=== PATIENT | male | born 1985 | race African-American/Black ===

== ENCOUNTER 2016-06-15 08:44 | Emergency (ER) | payer SELFPAY ==
[~2016-06-15] VITALS: Ht 190.5 cm; Wt 80.5 kg
[~2016-06-15 08:44] MED LIST: IBUP-1050 PO; PROC1TAB5 PO
[2016-06-15 08:48] VITALS: TEMP 36.6; Ht 190.5 cm; Wt 80.5 kg
[2016-06-15] MEDS ORDERED: METOCLOPRAMIDE HCL INJ 5 MG/ML 2 ML VIAL IV STA (09:12)
[2016-06-15] MEDS ORDERED: KETOROLAC TROMETHAMINE 30 MG/ML VIAL IV STA (09:12)
[2016-06-15] MEDS ORDERED: SODIUM CHLORIDE 0.9% 1000ML 1,000 ML IV STA (09:12)
[2016-06-15] MEDS ORDERED: HYDROmorphone INJ 1 MG/ML SYR IV STA (09:12)
[2016-06-15 09:20] LABS: BASO % 0.1 %; BASO ABS # 0.01 K/uL (0-0.2); COMPLETE YES; EOS % 2.2 %; HEMATOCRIT 42.9 % (42-52); IG% 0.2 %; LYMPH % 11.4 %; LYMPH ABS # 0.92 K/uL (1.2-3.4); MEAN CORPUSCULAR HEMOGLOBIN 30.8 pg (25-34); MEAN CORPUSCULAR HGB CONC 37.5 g/dl (32-36); MEAN PLATELET VOLUME 10.1 fL (7.4-10.4); MONO % 3.9 %; NEUT % 82.2 %; PLATELET COUNT 202 K/uL (130-400); RED BLOOD COUNT 5.23 M/uL (4.7-6.1); WHITE BLOOD COUNT 8.04 K/uL (4.8-10.8)
[2016-06-15 09:28] LABS: BUN/CREATININE RATIO 12.8 (10-20); CALCIUM 9.4 mg/dl (8.5-10.1); POTASSIUM 4.1 mmol/L (3.5-5.1)
--- NOTE | 2016-06-15 11:59 | DIAGNOSTIC IMAGING REPORT ---
CT ABD/PELVIS ORAL CONT ONLY CLINICAL HISTORY: Abdominal pain, vomiting and diarrhea. TECHNIQUE: Axial images of the abdomen and pelvis were obtained without IV contrast. Oral contrast was administered. COMPARISON STUDY: CT of the abdomen and pelvis September 29, 2013. FINDINGS: Lung bases are clear. No renal, ureteral or bladder calculi are present. There is no hydronephrosis or hydroureter. Evaluation of the remainder of the abdomen and pelvis is suboptimal on this unenhanced exam. Unenhanced images of the liver, spleen, adrenal glands and pancreas are normal. There is no evidence of a bowel obstruction. The appendix is normal. There is no free fluid or lymphadenopathy. Mild wall thickening of the left colon is likely due to underdistention. IMPRESSION: 1. No acute process within the abdomen or pelvis on unenhanced exam. Normal appendix. 2. Apparent mild wall thickening of the left colon is likely due to underdistention. A mild nonspecific colitis could appear similar but is considered less likely. Electronically signed by: Amaury Carrillo M.D. 06/15/2016 11:57 AM Dictated Date/Time: 06/15/2016 11:52 AM
[2016-06-15] MEDS ORDERED: AMOXICILLIN 250 MG CAP PO STA (12:16)
[2016-06-15] MEDS ORDERED: LANSOPRAZOLE SOLUTAB 30 MG PO STA (12:16)
[2016-06-15] MEDS ORDERED: AMOX500C3 PO (12:25)
[2016-06-15] MEDS ORDERED: OXYC-57 PO (12:25)
[2016-06-15] MEDS ORDERED: ONDA4TAB10 SL (12:25)
[2016-06-15] MEDS ORDERED: LANS30CA41 PO (12:25)
[2016-06-15] MEDS ORDERED: CLAR500T3 PO (12:25)
[2016-06-15] MEDS ORDERED: CLARITHROMYCIN 500 MG TAB PO ONE (12:30)
[2016-06-15 12:52] VITALS: BP 125/64; PULSE 76; O2SAT 97
--- NOTE | 2016-06-15 16:17 | EMERGENCY ROOM VISIT NOTE ---
History Report prepared by Ania: Scarlet Tate Under the Supervision of: Dr. Andrez Somers M.D. First contact with patient: 08:58 Chief Complaint: ABDOMINAL PAIN Stated Complaint: BELLY PAIN, VOMITING, DIARRHEA Nursing Triage Summary: n/v/c abdominal pain since 0100 History of Present Illness The patient is a 31 year old male who presents to the Emergency Room with complaints of progressively worsening pain around his periumbilical region over the past 8 hours. Currently, he rates his discomfort as a 10/10, and he is unable to find a comfortable position secondary to his pain. Since the time of onset, the patient has felt nauseous and has vomited several times. He also notes one movement of diarrhea this morning, but he denies noticing any blood throughout his emesis or stool, and he denies noticing any black, tarry discoloration. The patient has a history of H. pylori and states that his symptoms today feel similar to his past episode. He did not follow up with GI at that time. He has not yet taken any medications for his symptoms today. Patient denies recent fevers, chills, chest pain, cough, shortness of breath, urinary symptoms or swelling to his extremities. Source of History: patient Onset: x8 hours Position: abdomen (periumbilical) Symptom Intensity: 10/10 Timing: other (x 8 hours) Associated Symptoms: + diarrhea, + nausea, + vomiting, No SOB, No chest pain , No chills, No cough, No fevers, No hematochezia, No melena, No urinary symptoms Review of Systems See HPI for pertinent positives & negatives. A total of 10 systems reviewed and were otherwise negative. Past Medical & Surgical Medical Problems: (1) Pharyngitis (2) Positive H. pylori test (3) Positive H. pylori test (4) Scabies Family History Diabetes mellitus Hypertension Kidney stones Social History Smoking Status: Former Smoker Alcohol Use: heavy Drug Use: marijuana Marital Status: single Housing Status: lives with family Occupation Status: employed Current/Historical Medications Scheduled Amoxicillin (Amoxil), 500 MG PO TID Clarithromycin (Biaxin), 1 TAB PO BID Lansoprazole (Prevacid), 30 MG PO DAILY Ondasetron Odt (Zofran Odt), 4 MG SL Q6H Scheduled PRN Oxycodone/Acetaminophen 5MG/325MG (Percocet 5MG/325MG), 1-2 TAB PO Q4H PRN for Pain Allergies Coded Allergies: Iodine (Verified Allergy, Unknown, SEAFOOD ALLERGY = HIVES, 06/15/16) Uncoded Allergies: BEE STINGS (Allergy, Unknown, ., 02/10/14) Physical Exam Vital Signs Date Time Temp Pulse Resp B/P Pulse Ox O2 Delivery O2 Flow Rate FiO2 06/15/16 12:52 76 18 125/64 97 06/15/16 10:12 78 18 123/73 99 Room Air 06/15/16 09:31 67 06/15/16 08:48 36.6 88 20 120/73 95 Room Air Physical Exam GENERAL: Patient is a writhing around the bed in pain. Appears uncomfortable. HEAD: Normocephalic atraumatic EYES: Ocular movements intact pupils equal and react to light OROPHARYNX mucous membranes are moist no exudates present no erythema or edema present NECK: Supple no nuchal rigidity CHEST: Good equal expansion LUNGS: Clear and equal to auscultation CARDIAC: Normal S1 and S2 ABDOMEN: Diffuse pain throughout. BACK: No CVA tenderness EXTREMITIES: No pain upon palpation normal muscle strength in all groups no clubbing cyanosis or edema NEURO: Patient is following commands is answering questions appropriately. Alert and oriented x3 Cranial Nerves 2-12 grossly intact Medical Decision & Procedures ER Provider Diagnostic Interpretation: CT results as stated below per my review and radiologist interpretation: CT ABD/PELVIS ORAL CONT ONLY CLINICAL HISTORY: Abdominal pain, vomiting and diarrhea. TECHNIQUE: Axial images of the abdomen and pelvis were obtained without IV contrast. Oral contrast was administered. COMPARISON STUDY: CT of the abdomen and pelvis September 29, 2013. FINDINGS: Lung bases are clear. No renal, ureteral or bladder calculi are present. There is no hydronephrosis or hydroureter. Evaluation of the remainder of the abdomen and pelvis is suboptimal on this unenhanced exam. Unenhanced images of the liver, spleen, adrenal glands and pancreas are normal. There is no evidence of a bowel obstruction. The appendix is normal. There is no free fluid or lymphadenopathy. Mild wall thickening of the left colon is likely due to underdistention. IMPRESSION: 1. No acute process within the abdomen or pelvis on unenhanced exam. Normal appendix. 2. Apparent mild wall thickening of the left colon is likely due to underdistention. A mild nonspecific colitis could appear similar but is considered less likely. Electronically signed by: Amaury Carrillo M.D. 06/15/2016 11:57 AM Dictated Date/Time: 06/15/2016 11:52 AM Laboratory Results 06/15/16 09:02 Red Blood Count 5.23, Mean Corpuscular Volume 82.0, Mean Corpuscular Hemoglobin 30.8, Mean Corpuscular Hemoglobin Concent 37.5, Mean Platelet Volume 10.1, Neutrophils (%) (Auto) 82.2, Lymphocytes (%) (Auto) 11.4, Monocytes (%) (Auto) 3.9, Eosinophils (%) (Auto) 2.2, Basophils (%) (Auto) 0.1, Neutrophils # (Auto) 6.60, Lymphocytes # (Auto) 0.92, Monocytes # (Auto) 0.31, Eosinophils # (Auto) 0.18, Basophils # (Auto) 0.01 06/15/16 09:02 Test 06/15/16 09:02 White Blood Count 8.04 K/uL (4.8-10.8) Red Blood Count 5.23 M/uL (4.7-6.1) Hemoglobin 16.1 g/dL (14.0-18.0) Hematocrit 42.9 % (42-52) Mean Corpuscular Volume 82.0 fL (80-100) Mean Corpuscular Hemoglobin 30.8 pg (25-34) Mean Corpuscular Hemoglobin Concent 37.5 g/dl (32-36) Platelet Count 202 K/uL (130-400) Mean Platelet Volume 10.1 fL (7.4-10.4) Neutrophils (%) (Auto) 82.2 % Lymphocytes (%) (Auto) 11.4 % Monocytes (%) (Auto) 3.9 % Eosinophils (%) (Auto) 2.2 % Basophils (%) (Auto) 0.1 % Neutrophils # (Auto) 6.60 K/uL (1.4-6.5) Lymphocytes # (Auto) 0.92 K/uL (1.2-3.4) Monocytes # (Auto) 0.31 K/uL (0.11-0.59) Eosinophils # (Auto) 0.18 K/uL (0-0.5) Basophils # (Auto) 0.01 K/uL (0-0.2) RDW Standard Deviation 43.6 fL (36.4-46.3) RDW Coefficient of Variation 14.3 % (11.5-14.5) Immature Granulocyte % (Auto) 0.2 % Immature Granulocyte # (Auto) 0.02 K/uL (0.00-0.02) Anion Gap 10.0 mmol/L (3-11) Est Creatinine Clear Calc Drug Dose 119.6 ml/min Estimated GFR () 114.1 Estimated GFR (Non- 98.5 BUN/Creatinine Ratio 12.8 (10-20) Calcium Level 9.4 mg/dl (8.5-10.1) Total Bilirubin 1.9 mg/dl (0.2-1) Direct Bilirubin 0.4 mg/dl (0-0.2) Aspartate Amino Transf (AST/SGOT) 20 U/L (15-37) Alanine Aminotransferase (ALT/SGPT) 27 U/L (12-78) Alkaline Phosphatase 44 U/L (45-117) Total Protein 7.9 gm/dl (6.4-8.2) Albumin 4.5 gm/dl (3.4-5.0) Lipase 125 U/L (73-393) Labs reviewed by ED physician. Medications Administered Medications (Trade) Dose Ordered Sig/Анна Route Start Time Stop Time Status Last Admin Dose Admin Sodium Chloride (Nss 1000ml) 1,000 ml @ 999 mls/hr Q1H1M STAT IV 06/15/16 09:12 06/15/16 10:12 DC 06/15/16 09:22 999 MLS/HR Ketorolac Tromethamine (Toradol Inj) 30 mg NOW STAT IV 06/15/16 09:12 06/15/16 09:14 DC 06/15/16 09:21 30 MG Metoclopramide HCl (Reglan Inj) 10 mg NOW STAT IV 06/15/16 09:12 06/15/16 09:14 DC 06/15/16 09:21 10 MG Hydromorphone HCl (Dilaudid Inj) 1 mg NOW STAT IV 06/15/16 09:12 06/15/16 09:14 DC 06/15/16 09:21 1 MG Amoxicillin (Amoxil Cap) 1,000 mg NOW STAT PO 06/15/16 12:16 06/15/16 12:18 DC 06/15/16 12:46 1,000 MG Clarithromycin (Biaxin Tab) 500 mg NOW ONCE PO 06/15/16 12:30 06/15/16 12:31 DC 06/15/16 12:45 500 MG Lansoprazole (Prevacid Solutab) 30 mg NOW STAT PO 06/15/16 12:16 06/15/16 12:18 DC 06/15/16 12:46 30 MG ED Course 0858: Past medical records reviewed. The patient was evaluated in room A9. A complete history and physical examination was performed. 0912: Dilaudid 1 mg IV, Reglan 10 mg IV, Toradol 30 mg IV and NSS bolus IV were ordered. 0950: Upon reevaluation, the patient was doing well and was resting more comfortably after receiving the pain medication. He will go to CT for further imaging studies. 1200: I reevaluated the patient at this time and updated him on the results of his radiology reports. His remaining lab tests are still pending. 1216: Upon reevaluation, the patient was doing well. I updated him on the remainder of his workup. Amoxicillin 1,000 mg PO was ordered. 1230: Patient was requesting additional antibiotics similar to when he had H. pylori as he feels that his symptoms are similar to that time. Biaxin tab 500 mg PO was ordered. Additional discharge instructions were also discussed. He verbalized his understanding and agreement with the treatment plan, and he is now ready for disposition. Medical Decision Differential diagnosis: Etiologies such as appendicitis, diverticulitis, PUD, biliary pathology, UTI, pancreatitis, obstruction, mesenteric ischemia, aortic pathology, infections, inflammatory bowel disease, renal colic, as well as others were entertained. This is a 31-year-old male who presents emergency department complaining of diffuse abdominal pain. Serial abdominal examinations were performed of the patient emergency department and at no time did the patient exhibited a surgical abdomen. In addition the patient has a normal CBC and does not have an elevation in his white blood count. He also has a normal renal profile normal liver profile normal lipase. The patient does have a history of positive H. pylori test and he states that he feels the pain is similar to when he had this. Based on this finding along with his complaints and using shared medical decision making we decided to treat the patient for H. pylori infection by started him on amoxicillin, clarithromycin as well as Prevacid. I believe the patient is well enough to be discharged home. He was given pain medication for home as well as Percocet. His CAT scan does not show any evidence of acute process. I stressed the need for follow-up with gastroenterology and also stressed a clear liquid diet for the next 48 hours. Patient was in agreement with the treatment plan. Impression Primary Impression: Epigastric abdominal pain Scribe Attestation The scribe's documentation has been prepared under my direction and personally reviewed by me in its entirety. I confirm that the note above accurately reflects all work, treatment, procedures, and medical decision making performed by me. Departure Information Dispostion Home / Self-Care Prescriptions Ondasetron Odt (ZOFRAN ODT) 4 Mg Tab 4 MG SL Q6H for Nausea, #6 TAB Prov: Andrez Somers MD 06/15/16 Oxycodone/Acetaminophen 5MG/325MG (PERCOCET 5MG/325MG) Tab 1-2 TAB PO Q4H Y for Pain, #14 TAB Prov: Andrez Somers MD 06/15/16 Lansoprazole (PREVACID) 30 Mg Cap 30 MG PO DAILY for 10 Days, #10 CAP Prov: Andrez Somers MD 06/15/16 Clarithromycin (BIAXIN) 500 Mg Tab 1 TAB PO BID for 10 Days, #20 TAB Prov: Andrez Somers MD 06/15/16 Amoxicillin (AMOXIL) 500 Mg Cap 500 MG PO TID, #30 CAP Prov: Andrez Somers MD 06/15/16 Referrals No Doctor, Assigned (PCP) Forms Call Back Authorization, HOME CARE DOCUMENTATION FORM, IMPORTANT VISIT INFORMATION Patient Instructions My [facility] Additional Instructions Follow up with DR Engel's office Clear liquid diet next 48 hours You received narcotic or benzodiazepene medication while in the emergency room today. Do not drive, operate heavy machinery, or drink alcohol under the influence of this medication. Take Percocet for breakthrough pain Radiographs and CTs will be reread by a radiologist in the morning. Culture results are usually available in approx 48 hours You have been examined and treated today on an emergency basis only. This is not a substitute for, or an effort to provide, complete comprehensive medical care. It is impossible to recognize and treat all injuries or illnesses in a single emergency department visit. It is therefore important that you follow up closely with Dr Engel. Call as soon as possible for an appointment. Thank you for your time and consideration. I look forward to speaking with you again soon. Please don't hesitate to call us if you have any questions.
== END 2016-06-15 12:52 | disposition home or self-care (01) ==
LOC: C.EDB 08:46 → C.EDA 12:52
DX: R10.13 Epigastric pain (principal); R19.7 Diarrhea, unspecified; A04.8 Other specified bacterial intestinal infections; Z86.19 Personal history of other infectious and parasitic diseases; Z83.3 Family history of diabetes mellitus; Z84.1 Family history of disorders of kidney and ureter; Z82.49 Family history of ischemic heart disease and other diseases of the circulatory system; Z87.891 Personal history of nicotine dependence

== ENCOUNTER 2017-04-29 08:20 | Emergency (ER) | payer OTHER ==
[~2017-04-29] VITALS: Ht 190.5 cm; Wt 86.2 kg
[2017-04-29 08:21] VITALS: TEMP 37.2; Ht 190.5 cm; Wt 86.2 kg
[2017-04-29] MEDS ORDERED: IBUPROFEN 600 MG TAB PO STA (08:55)
--- NOTE | 2017-04-29 09:25 | EMERGENCY ROOM VISIT NOTE ---
History Report prepared by Ania: Mervat Brewer Under the Supervision of: Dr. Lobito Gay M.D. First contact with patient: 08:48 Chief Complaint: FLU LIKE SX Stated Complaint: SPINAL CORD, FLU SYMPTOMS History of Present Illness The patient is a 31 year old male who presents to the Emergency Room with complaints of a persistent lower back pain that began 2 to 3 days ago. The patient currently rates his discomfort as a 10/10 in severity. He notes that he has been experiencing pressure on his lower back, noting is has progressively radiated throughout his entire back. He states that he has had a sore throat, cough and chills for 1 week. The patient states that he has taken NyQuil, Mucinex, and Advil without relief of his symptoms. He notes that his pain worsens with movement. The patient states that his children have been sick recently. He denies ever having pain like this in the past. Source of History: patient Onset: 2-3 days ago Position: back (lower) Symptom Intensity: 10/10 Quality: pressure Timing: other (persistent ) Modifying Factors (Worsening): movement Associated Symptoms: + chills, + sorethroat, + cough Review of Systems See HPI for pertinent positives & negatives. A total of 10 systems reviewed and were otherwise negative. Past Medical & Surgical Medical Problems: (1) Pharyngitis (2) Positive H. pylori test (3) Positive H. pylori test (4) Scabies Family History Diabetes mellitus Hypertension Kidney stones Social History Smoking Status: Current Every Day Smoker Alcohol Use: heavy Drug Use: marijuana Marital Status: single Housing Status: lives with family Occupation Status: employed Current/Historical Medications Scheduled Penicillin V Potassium (Veetids), 500 MG PO QID Scheduled PRN Ibuprofen (Motrin), 600 MG PO Q6H PRN for Pain Allergies Coded Allergies: BEE STING (Unverified Allergy, Intermediate, ., 04/29/17) Iodine (Verified Allergy, Unknown, SEAFOOD ALLERGY = HIVES, 04/29/17) Uncoded Allergies: BEE STINGS (Allergy, Unknown, ., 02/10/14) Physical Exam Vital Signs Date Time Temp Pulse Resp B/P (MAP) Pulse Ox O2 Delivery O2 Flow Rate FiO2 04/29/17 10:59 86 18 137/77 98 04/29/17 10:07 76 19 131/69 97 04/29/17 08:21 37.2 97 17 117/56 95 Room Air Physical Exam GENERAL: Patient awake, alert, oriented x 3. Patient follows commands. Patient does not appear toxic. Patient is adequately hydrated and well- nourished. Patient is in moderate to severe distress. SKIN: No erythema, pallor, cyanosis or rash HEENT: Normal head, pupils equal, reactive to light and accommodation. Ears normal. Some swelling in the posterior oropharynx and erythema, no pus. Neck: Without adenopathy, no neck vein distention. Negative Kernig's Brudzinski sign. LUNGS: Clear to auscultation. No wheezes, no rales, no rhonchi. HEART: No murmurs. No gallops. No rubs ABDOMEN: No masses, no rebound, no hepatomegaly or splenomegaly. BACK: Patient has some vague tenderness on lumbar, but no erythema or signs of infection. EXTREMITIES: No signs of trauma. No pedal or pretibial edema. No calf or thigh tenderness. NEUROLOGIC: Cranial nerves II-XII within normal limits. No gross motor sensory function deficits. Medical Decision & Procedures ER Provider Diagnostic Interpretation: Radiology results as stated below per my review and radiologist interpretation: CHEST 2 VIEWS ROUTINE HISTORY: 31 years-old Male acute fever with body aches COMPARISON: Acute abdominal series radiographs 09/29/2013 TECHNIQUE: PA and lateral views of the chest FINDINGS: Focal subsegmental alveolar opacities of the right upper lobe, likely anterior segment are present. Lung carney are otherwise clear without pneumothorax or pleural effusion. Minimal alveolar opacities of the left lung identified. Cardiomediastinal and hilar silhouettes are within normal limits. The bones of the chest are grossly intact. IMPRESSION: Subsegmental alveolar opacities of the right upper lobe suggest pneumonia. The above report was generated using voice recognition software. It may contain grammatical, syntax or spelling errors. Electronically signed by: Emiliano Roman M.D. 04/29/2017 9:37 AM Laboratory Results 04/29/17 09:05 Red Blood Count 4.40, Mean Corpuscular Volume 84.1, Mean Corpuscular Hemoglobin 31.4, Mean Corpuscular Hemoglobin Concent 37.3, Mean Platelet Volume 9.9, Neutrophils (%) (Auto) 83.4, Lymphocytes (%) (Auto) 9.4, Monocytes (%) (Auto) 6.0, Eosinophils (%) (Auto) 0.6, Basophils (%) (Auto) 0.1, Neutrophils # (Auto) 20.45, Lymphocytes # (Auto) 2.29, Monocytes # (Auto) 1.46, Eosinophils # (Auto) 0.14, Basophils # (Auto) 0.03 04/29/17 09:05 Test 04/29/17 09:05 04/29/17 10:24 White Blood Count 24.49 K/uL (4.8-10.8) Red Blood Count 4.40 M/uL (4.7-6.1) Hemoglobin 13.8 g/dL (14.0-18.0) Hematocrit 37.0 % (42-52) Mean Corpuscular Volume 84.1 fL (80-100) Mean Corpuscular Hemoglobin 31.4 pg (25-34) Mean Corpuscular Hemoglobin Concent 37.3 g/dl (32-36) Platelet Count 219 K/uL (130-400) Mean Platelet Volume 9.9 fL (7.4-10.4) Neutrophils (%) (Auto) 83.4 % Lymphocytes (%) (Auto) 9.4 % Monocytes (%) (Auto) 6.0 % Eosinophils (%) (Auto) 0.6 % Basophils (%) (Auto) 0.1 % Neutrophils # (Auto) 20.45 K/uL (1.4-6.5) Lymphocytes # (Auto) 2.29 K/uL (1.2-3.4) Monocytes # (Auto) 1.46 K/uL (0.11-0.59) Eosinophils # (Auto) 0.14 K/uL (0-0.5) Basophils # (Auto) 0.03 K/uL (0-0.2) RDW Standard Deviation 44.0 fL (36.4-46.3) RDW Coefficient of Variation 14.3 % (11.5-14.5) Immature Granulocyte % (Auto) 0.5 % Immature Granulocyte # (Auto) 0.12 K/uL (0.00-0.02) Toxic Granulation 1+ Dohle Bodies 1+ Target Cells 1+ Stomatocytes 1+ Anion Gap 8.0 mmol/L (3-11) Est Creatinine Clear Calc Drug Dose 121.9 ml/min Estimated GFR () 110.1 Estimated GFR (Non- 95.0 BUN/Creatinine Ratio 6.0 (10-20) Calcium Level 8.8 mg/dl (8.5-10.1) Total Bilirubin 0.5 mg/dl (0.2-1) Aspartate Amino Transf (AST/SGOT) 24 U/L (15-37) Alanine Aminotransferase (ALT/SGPT) 36 U/L (12-78) Alkaline Phosphatase 67 U/L (45-117) Total Protein 7.7 gm/dl (6.4-8.2) Albumin 3.5 gm/dl (3.4-5.0) Globulin 4.2 gm/dl (2.5-4.0) Albumin/Globulin Ratio 0.8 (0.9-2) Monoscreen NEG (NEG) Influenza Type A (RT-PCR) Neg for Influ A (NEG) Influenza Type B (RT-PCR) Neg for Influ B (NEG) Bedside Lactic Acid Venous 0.36 mmol/L (0.90-1.70) Date/Time Source Procedure Growth Status 04/29/17 09:05 Throat Group A Streptococcus Screen - Final SPECIMEN POSITIVE FOR GROUP A BETA ST... Complete 04/29/17 09:05 Throat Group A Streptococcus Screen ([facility]) - Final Complete Laboratory results as stated above per my review. Medications Administered Medications (Trade) Dose Ordered Sig/Анна Route Start Time Stop Time Status Last Admin Dose Admin Ibuprofen (Motrin Tab) 600 mg NOW STAT PO 04/29/17 08:55 04/29/17 08:57 DC 04/29/17 09:00 600 MG Sodium Chloride 1,000 ml @ 1,000 mls/hr Q1H ONCE IV 04/29/17 10:00 04/29/17 10:59 DC 04/29/17 10:03 1,000 MLS/HR Penicillin V Potassium (Veetids Tab) 500 mg ONE ONCE PO 04/29/17 10:45 04/29/17 10:46 DC 04/29/17 10:56 500 MG Laboratory results as stated above per my review. ED Course 0853: Past medical records reviewed. The patient was evaluated in room B6. A complete history and physical examination was performed. 0855: Ordered Ibuprofen 600mg PO. 1000: Ordered Sodium Chloride 1000ml @ 1000mls/hr IV. 1032: I reevaluated the patient. His blood pressure appears to be normal. I will start him on an antibiotic. I discussed the test results with him and I discussed the treatment plan. He verbalized complete understanding and agreement. He is ready to go home. 1045: Ordered Penicillin V Potassium 500mg PO. Medical Decision Nurses notes reviewed. Medical history sheet reviewed. Differential diagnosis includes but is not limited to: Meningitis, Mononucleosis, Influenza, Pneumonia , Other viral infections, Metabolic disorders . Multiple labs and imaging were performed. Strep test was positive. The patient also appears to have a small infiltrate in his right upper lobe. The patient's white count is significantly elevated. Lactic acid is not elevated. I do not believe the patient has signs of encephalitis or meningitis. The patient was started on penicillin here. He will continue that medication plus ibuprofen. He was encouraged to drink extra fluids. He is to follow-up with the family physician within the next 7 days. Medication Reconcilliation Current Medication List: was personally reviewed by me Blood Pressure Screening Patient's blood pressure: Normal blood pressure Blood pressure disposition: Did not require urgent referral Impression Primary Impression: Strep pharyngitis Additional Impression: Pneumonia Scribe Attestation The scribe's documentation has been prepared under my direction and personally reviewed by me in its entirety. I confirm that the note above accurately reflects all work, treatment, procedures, and medical decision making performed by me. Departure Information Dispostion Home / Self-Care Prescriptions Ibuprofen (MOTRIN) 600 Mg Tab 600 MG PO Q6H Y for Pain, #20 TAB TAKE WITH FOOD Prov: Lobito Gay M.D. 04/29/17 Penicillin V Potassium (VEETIDS) 500 Mg Tab 500 MG PO QID, #39 TAB Prov: Lobito Gay M.D. 04/29/17 Referrals No Doctor, Assigned (PCP) Forms HOME CARE DOCUMENTATION FORM, IMPORTANT VISIT INFORMATION, Work Instructions Patient Instructions My [facility] Additional Instructions 1 penicillin 4 times a day for 10 days. 600 mg ibuprofen every 6 hours as needed for aches, pain or fever. Drink at least 1 gallon of liquid daily for the next 3 days. Follow-up with a family physician within the next 7 days. Return here sooner if your symptoms are getting any worse. Off work for the next 3 days. Work Instructions Specific Date: 05/02/17 Problem Qualifiers
--- NOTE | 2017-04-29 09:38 | DIAGNOSTIC IMAGING REPORT ---
CHEST 2 VIEWS ROUTINE HISTORY: 31 years-old Male acute fever with body aches COMPARISON: Acute abdominal series radiographs 09/29/2013 TECHNIQUE: PA and lateral views of the chest FINDINGS: Focal subsegmental alveolar opacities of the right upper lobe, likely anterior segment are present. Lung carney are otherwise clear without pneumothorax or pleural effusion. Minimal alveolar opacities of the left lung identified. Cardiomediastinal and hilar silhouettes are within normal limits. The bones of the chest are grossly intact. IMPRESSION: Subsegmental alveolar opacities of the right upper lobe suggest pneumonia. The above report was generated using voice recognition software. It may contain grammatical, syntax or spelling errors. Electronically signed by: Emiliano Roman M.D. 04/29/2017 9:37 AM Dictated Date/Time: 04/29/2017 9:35 AM
[2017-04-29 09:45] LABS: MEAN CELL VOLUME 84.1 fL (80-100); MEAN CORPUSCULAR HEMOGLOBIN 31.4 pg (25-34); MEAN CORPUSCULAR HGB CONC 37.3 g/dl (32-36); MEAN PLATELET VOLUME 9.9 fL (7.4-10.4); PLATELET COUNT 219 K/uL (130-400); WHITE BLOOD COUNT 24.49 K/uL (4.8-10.8)
[2017-04-29] MEDS ORDERED: SODIUM CHLORIDE 0.9% 1000ML 1,000 ML IV ONE (10:00)
[2017-04-29 10:06] LABS: BASO % 0.1 %; BASO ABS # 0.03 K/uL (0-0.2); CALCIUM 8.8 mg/dl (8.5-10.1); COMPLETE YES; CREATININE 1.03 mg/dl (0.60-1.40); DOHLE BODIES 1+; EOS % 0.6 %; IG% 0.5 %; LYMPH % 9.4 %; LYMPH ABS # 2.29 K/uL (1.2-3.4); NEUT % 83.4 %; POTASSIUM 3.8 mmol/L (3.5-5.1); STOMATOCYTE 1+; TARGET CELLS 1+; TOXIC GRANULATION 1+
[2017-04-29 10:09] LABS: ALB/GLOB RATIO 0.8 (0.9-2)
[2017-04-29] MEDS ORDERED: PENI500T2 PO (10:41)
[2017-04-29] MEDS ORDERED: IBUP-1450 PO (10:41)
[2017-04-29] MEDS ORDERED: PENICILLIN V POTASSIUM 250 MG TAB PO ONE (10:45)
[2017-04-29 10:59] VITALS: BP 137/77; PULSE 86; O2SAT 98
[2017-04-29 11:02] LABS: INFLUENZA A PCR Neg for Influ A (NEG); INFLUENZA B PCR Neg for Influ B (NEG)
== END 2017-04-29 11:00 | disposition home or self-care (01) ==
LOC: C.EDB 08:20
DX: J18.9 Pneumonia, unspecified organism (principal); J02.0 Streptococcal pharyngitis; F17.200 Nicotine dependence, unspecified, uncomplicated; Z86.19 Personal history of other infectious and parasitic diseases; Z91.030 Bee allergy status; Z91.09 Other allergy status, other than to drugs and biological substances; Z83.3 Family history of diabetes mellitus; Z82.49 Family history of ischemic heart disease and other diseases of the circulatory system; Z84.1 Family history of disorders of kidney and ureter

== ENCOUNTER 2017-07-30 17:23 | Emergency (ER) | payer OTHER ==
[~2017-07-30] VITALS: Ht 190.5 cm; Wt 88.4 kg
[~2017-07-30 17:23] MED LIST changes: -IBUP-1050 PO; +IBUP-1450 PO; -PROC1TAB5 PO
[2017-07-30 17:30] VITALS: BP 122/74; PULSE 85; TEMP 36.9; O2SAT 97; Ht 190.5 cm; Wt 88.4 kg
[2017-07-30] MEDS ORDERED: KETOROLAC TROMETHAMINE 60 MG/2 ML VIAL IM STA (17:44)
--- NOTE | 2017-07-30 18:10 | DIAGNOSTIC IMAGING REPORT ---
L-SPINE MIN 4 VIEWS ROUTINE CLINICAL HISTORY: low back pain COMPARISON: Lumbar spine radiograph October 16, 2010. FINDINGS: Alignment of the lumbar spine is anatomic. Vertebral body heights are maintained. There is no fracture or suspicious lesion. There is mild disc space narrowing at L5-S1 and to a lesser extent L4-L5. There is mild osteophytosis. IMPRESSION: 1. No lumbar spine fracture or subluxation. 2. Mild degenerative disc disease at L4-L5 and L5-S1. Electronically signed by: Amaury Carrillo M.D. 07/30/2017 6:08 PM Dictated Date/Time: 07/30/2017 6:08 PM
[2017-07-30] MEDS ORDERED: PRED50TA PO (18:44)
[2017-07-30] MEDS ORDERED: CYCL10TA6 PO (18:44)
--- NOTE | 2017-07-30 20:44 | EMERGENCY ROOM VISIT NOTE ---
ED Visit Note First contact with patient: 17:32 CHIEF COMPLAINT: Low back pain HISTORY OF PRESENT ILLNESS: This 32-year-old male patient presents to the emergency department complaining of pain in the low back which began worsening over the past 2 weeks. 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 The pain was gradual in onset, is now constant and worse with movement. The patient notes the pain as dull and a 5/10. The patient has taken nothing relief of the pain. The patient denies any loss of control of their bowel or bladder functions. There has been no leg numbness or weakness, and no change in sensation. No nausea or vomiting or abdominal pain. No chest pain or shortness of breath. No dysuria or urinary symptoms. His pain is primarily in the mid and left side back although he will occasionally have right sided sciatic paresthesias REVIEW OF SYSTEMS: A review of systems was performed with positives and pertinent negatives listed in the history of present illness. All other systems were reviewed and are negative. ALLERGIES: No known medication allergies MEDICATIONS: No chronic medications PMH: Chronic back pain SOCIAL HISTORY: Employed and lives locally PHYSICAL EXAM: VITALS: Vitals are noted on the nurse's note and reviewed by myself. Vital signs stable. GENERAL: Male, in no acute distress, nondiaphoretic, well-developed well- nourished. SKIN: The skin was without rashes, erythema, edema, or bruising. Capillary refill less than 2 seconds. NECK: Supple without nuchal rigidity. No cervical spine tenderness. No paraspinous muscle tenderness. HEART: Regular rate and rhythm without murmurs gallops or rubs. LUNGS: Clear to auscultation bilaterally without wheezes, rales or rhonchi. ABDOMEN: Positive bowel sounds x 4. Normal tympanic percussion. Soft, nontender, without masses or organomegaly. Toro sign negative. MUSCULOSKELETAL: No muscle atrophy, erythema, or edema noted of the back. There is mild tenderness over the lumbar spinous processes. There is no tenderness over the paraspinous muscles. There is no tenderness over the thoracic spine or paraspinous muscles. There are no muscle spasms present. The patient is slow to move around with maximum tenderness with flexion. Negative straight leg raise test. NEURO: Patient was alert and oriented to person place and time. Normal sensation to light and sharp touch. Deep tendon reflexes 2+ in the lower extremities. Dorsalis pedis pulse 2+ bilaterally. Strength 5/5 and equal in the bilateral lower extremities. L-SPINE MIN 4 VIEWS ROUTINE CLINICAL HISTORY: low back pain COMPARISON: Lumbar spine radiograph October 16, 2010. FINDINGS: Alignment of the lumbar spine is anatomic. Vertebral body heights are maintained. There is no fracture or suspicious lesion. There is mild disc space narrowing at L5-S1 and to a lesser extent L4-L5. There is mild osteophytosis. IMPRESSION: 1. No lumbar spine fracture or subluxation. 2. Mild degenerative disc disease at L4-L5 and L5-S1. EMERGENCY DEPARTMENT COURSE: Physical exam and history were performed. Nursing notes and EMR were reviewed. The patient appears to have ongoing back pain that is worsening over the past few months. 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 X-ray was obtained and reviewed by myself and radiology as showing mild degenerative disc disease. The patient was given IM Toradol here in the department for comfort. He overall appears well for discharge home. His symptoms are likely musculoskeletal in nature and will be treated with [id number] analgesics, Flexeril, and prednisone. The patient is to follow with his primary care physician for further management. He was otherwise invited back to the ER with any new or worsening, or concerning symptoms. Problem List Medical Problems: (1) Pharyngitis Status: Resolved (2) Positive H. pylori test Status: Resolved (3) Positive H. pylori test Status: Resolved (4) Scabies Status: Resolved Current/Historical Medications Scheduled Cyclobenzaprine Hcl (Flexeril), 10 MG PO TID Prednisone (Prednisone), 50 MG PO DAILY Allergies Coded Allergies: BEE STING (Unverified Allergy, Intermediate, ., 07/30/17) Iodine (Verified Allergy, Unknown, SEAFOOD ALLERGY = HIVES, 07/30/17) Uncoded Allergies: BEE STINGS (Allergy, Unknown, ., 02/10/14) Vital Signs Date Time Temp Pulse Resp B/P (MAP) Pulse Ox O2 Delivery O2 Flow Rate FiO2 07/30/17 17:30 36.9 85 18 122/74 97 Room Air Medications Administered Medications (Trade) Dose Ordered Sig/Анна Route Start Time Stop Time Status Last Admin Dose Admin Ketorolac Tromethamine (Toradol Inj) 60 mg NOW STAT IM 07/30/17 17:44 07/30/17 17:45 DC 07/30/17 17:49 60 MG Departure Information Impression Primary Impression: Low back pain with sciatica Dispostion Home / Self-Care Condition GOOD Prescriptions Cyclobenzaprine Hcl (FLEXERIL) 10 Mg Tab 10 MG PO TID for 7 Days, #21 TAB Prov: Modesto Hurley PA-C 07/30/17 Prednisone (Prednisone) 50 Mg Tab 50 MG PO DAILY for 4 Days, #4 TAB Prov: Modesto Hurley PA-C 07/30/17 Forms HOME CARE DOCUMENTATION FORM, IMPORTANT VISIT INFORMATION Patient Instructions My [facility] Additional Instructions You were seen and evaluated today on an emergency basis only. This is not a substitute for, or an effort to provide, complete comprehensive medical care. It is not possible to recognize and treat all injuries or illnesses in a single emergency department visit. For this reason it is recommended that you followup with your primary care physician for ongoing care and evaluation. For baseline pain relief you may alternate ibuprofen and acetaminophen every 4 hours for pain control. Take 600 mg ibuprofen (Advil) and then 4 hours later take 1000 mg acetaminophen (Tylenol). Do not take more than 3000 mg acetaminophen in a single day. Take prednisone for the next 4 days. This is best taken in the morning with food. Flexeril 1 tablet up to 3 times a day as needed for muscle spasms. No driving, working, or alcohol use with Flexeril. You are welcome to return to the emergency department anytime with new, worsening, or concerning symptoms.
== END 2017-07-30 18:54 | disposition home or self-care (01) ==
LOC: C.EDB 17:24 → C.EDD 18:54
DX: M54.42 Lumbago with sciatica, left side (principal); G89.29 Other chronic pain; Z91.030 Bee allergy status

== ENCOUNTER 2017-09-04 13:29 | Inpatient (IN) | payer SELFPAY ==
[~2017-09-04] VITALS: Ht 190.5 cm; Wt 90.0 kg
[2017-09-04 14:20] LABS: BASO % 0.1 %; BASO ABS # 0.01 K/uL (0-0.2); EOS % 0.3 %; EOS ABS # 0.03 K/uL (0-0.5); HEMATOCRIT 39.4 % (42-52); HEMOGLOBIN 14.8 g/dL (14.0-18.0); IG# 0.02 K/uL (0.00-0.02); LYMPH % 29.4 %; LYMPH ABS # 2.72 K/uL (1.2-3.4); MEAN CELL VOLUME 82.6 fL (80-100); MEAN CORPUSCULAR HGB CONC 37.6 g/dl (32-36); MEAN PLATELET VOLUME 9.6 fL (7.4-10.4); MONO % 4.7 %; MONO ABS # 0.43 K/uL (0.11-0.59); NEUT % 65.3 %; NEUT ABS # 6.03 K/uL (1.4-6.5); PLATELET COUNT 248 K/uL (130-400); RED CELL DISTRIBUTION WIDTH CV 14.2 % (11.5-14.5); RED CELL DISTRIBUTION WIDTH SD 42.8 fL (36.4-46.3); WHITE BLOOD COUNT 9.24 K/uL (4.8-10.8)
[2017-09-04 14:39] LABS: ALBUMIN 4.2 gm/dl (3.4-5.0); CALCIUM 9.2 mg/dl (8.5-10.1); CREATININE 1.2 mg/dl (0.60-1.40); POTASSIUM 3.1 mmol/L (3.5-5.1)
[2017-09-04 14:49] LABS: TOTAL PROTEIN 8.3 gm/dl (6.4-8.2)
[2017-09-04] MEDS ORDERED: CYCL10TA6 PO (15:07)
[2017-09-04] MEDS ORDERED: POTASSIUM CHLORIDE 10 MEQ TABCR PO STA (15:15)
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
[2017-09-04 17:00] VITALS: O2SAT 98
[2017-09-04] MEDS ORDERED: NURSING VERBAL MED ORDER SCH (17:15)
[2017-09-04] MEDS ORDERED: SODIUM CHLORIDE 0.65% NA SOLN 45 ML (OCEAN) PRN (17:30)
[2017-09-04] MEDS ORDERED: MAGNESIUM HYDROXIDE SUSP 30 ML UDC PO PRN (17:30)
[2017-09-04] MEDS ORDERED: hydrOXYzine HCL 25 MG TAB PO PRN ×2 (17:30)
[2017-09-04] MEDS ORDERED: ACETAMINOPHEN 325 MG TAB PO PRN (17:30)
[2017-09-04] MEDS ORDERED: LORAZEPAM 1 MG TAB PO PRN (17:30)
[2017-09-04] MEDS ORDERED: ALUMINUM/MAGNESIUM SUSP 30 ML UDC PO PRN (17:30)
[2017-09-04] MEDS ORDERED: BISMUTH SUBSALICYLATE PER ML OMNICELL CHARGE PO PRN (17:30)
[2017-09-04 18:20] VITALS: BP 126/79; PULSE 112; TEMP 37.1; Ht 190.5 cm; Wt 90.0 kg
[2017-09-04] MEDS: CYCLOBENZAPRINE HCL 10 MG TAB PO SCH (21:38)
[2017-09-05 06:51] VITALS: BP_SYST 120; BP_SYST 124; BP_DIAS 79; BP_DIAS 81; PULSE 108; PULSE 86; TEMP 36.7
[2017-09-05] MEDS: CYCLOBENZAPRINE HCL 10 MG TAB PO SCH ×3 (08:31→21:12)
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
[2017-09-06 06:31] VITALS: BP_SYST 117; BP_SYST 134; BP_DIAS 71; BP_DIAS 86; PULSE 108; PULSE 90; TEMP 36.8
[2017-09-06 08:12] LABS: CALCIUM 8.8 mg/dl (8.5-10.1); CREATININE 1.03 mg/dl (0.60-1.40); POTASSIUM 3.6 mmol/L (3.5-5.1)
[2017-09-06] MEDS: CYCLOBENZAPRINE HCL 10 MG TAB PO SCH ×3 (09:18→21:18)
--- NOTE | 2017-09-06 09:51 | Psych Management Progress Note ---
Psychiatry Miscellaneous Date of Service: Sep 06, 2017. Patient seen, MS assessed. Rates mood as 4/10 and fed up. Limited facial expression. Encouraged cooperation with care and treatment plan as outlined by allied health prescriber.
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
[2017-09-07 06:36] VITALS: BP_SYST 126; BP_SYST 165; BP_DIAS 81; BP_DIAS 82; PULSE 105; PULSE 81; TEMP 36.8
[2017-09-07] MEDS: CYCLOBENZAPRINE HCL 10 MG TAB PO SCH ×3 (08:53→22:17)
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
[2017-09-07] MEDS ORDERED: IBUPROFEN 600 MG TAB PO STA (15:34)
[2017-09-07] MEDS: IBUPROFEN 600 MG TAB PO SCH (22:17)
[2017-09-08 06:31] VITALS: BP_SYST 115; BP_SYST 125; BP_DIAS 73; BP_DIAS 86; PULSE 82; PULSE 99; TEMP 36.6
[2017-09-08] MEDS: CYCLOBENZAPRINE HCL 10 MG TAB PO SCH ×3 (08:42→21:18)
[2017-09-08] MEDS: IBUPROFEN 600 MG TAB PO SCH ×3 (08:43→21:18)
--- NOTE | 2017-09-08 11:02 | Psych Management Progress Note ---
Psychiatry Miscellaneous Date of Service: Sep 08, 2017. Patient seen, MS assessed. Rates mood as "good" and "hopeful". He is expressing childhood experiences and now open to therapy. Will need [facility] as no insurance. Encouraged cooperation with care and treatment plan as outlined by allied health prescriber. 302 to tomorrow, need to determine safe living circumstances.
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
[2017-09-09 07:01] VITALS: BP_SYST 112; BP_SYST 125; BP_DIAS 71; BP_DIAS 80; PULSE 109; PULSE 82; TEMP 36.5
[2017-09-09] MEDS: CYCLOBENZAPRINE HCL 10 MG TAB PO SCH (09:38)
[2017-09-09] MEDS: IBUPROFEN 600 MG TAB PO SCH (09:38)
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
== END 2017-09-09 11:50 | disposition home or self-care (01) | DRG 881 ==
LOC: C.EDA 13:30 → C.MHU 17:15 → ENRESERV 17:38
PROVIDERS: ADMIT Student in an Organized Health Care Education/Training Program; ATTEND Psychiatry & Neurology Psychiatry
DX: F32.9 Major depressive disorder, single episode, unspecified (principal); R45.851 Suicidal ideations; E87.6 Hypokalemia; M54.9 Dorsalgia, unspecified; F12.10 Cannabis abuse, uncomplicated; F17.200 Nicotine dependence, unspecified, uncomplicated; Z79.899 Other long term (current) drug therapy; Z88.8 Allergy status to other drugs, medicaments and biological substances; Z91.030 Bee allergy status; Z83.3 Family history of diabetes mellitus; Z82.49 Family history of ischemic heart disease and other diseases of the circulatory system; Z84.1 Family history of disorders of kidney and ureter; Z81.3 Family history of other psychoactive substance abuse and dependence